=== PATIENT | female | born 1975 | race Caucasian/White ===

== ENCOUNTER 2022-01-01 08:51 | Day surgery (SDC) | payer BC ==
[2021-12-23 18:32] VITALS: BMI 29.2
[~2022-01-01 08:51] MED LIST: CEFAZOLIN 2 GM in DEXTROSE 5%-WATER - 50 ML IVPB ONE; TRANEXAMIC ACID 1000 MG/10 ML VIAL IVPUSH ONE
[2022-01-01] MEDS ORDERED: BUPIVACAINE HCL/PF 0.5% (5 MG/ML) 30 ML VIAL IJ ONE (10:37)
[2022-01-01] MEDS ORDERED: BUPIVACAINE LIPOSOME/PF (EXPAREL) 266 MG/20 ML VIAL ONE (10:37)
[2022-01-01] MEDS ORDERED: SODIUM CHLORIDE 0.9% P/F 10 ML VIAL IJ ONE (10:38)
[2022-01-01] MEDS ORDERED: BUPIVACAINE HCL/PF 0.5% (5MG/ML) 10 ML VIAL ONE (10:38)
[2022-01-01] MEDS ORDERED: MIDAZOLAM HCL 2 MG/2 ML SINGLE DOSE VIAL ONE ×3 (10:38→11:21)
[2022-01-01] MEDS ORDERED: DEXAMETHASONE SOD PHOSPHATE 4 MG/1 ML VIAL ONE (11:30)
[2022-01-01] MEDS ORDERED: ONDANSETRON 4 MG/2 ML VIAL ONE (11:30)
[2022-01-01] MEDS ORDERED: ceFAZolin SODIUM 1 GM VIAL ONE ×2 (11:30→19:27)
[2022-01-01] MEDS ORDERED: TRANEXAMIC ACID 1000 MG/10 ML VIAL ONE (11:30)
[2022-01-01] MEDS ORDERED: ONDANSETRON 4 MG/2 ML VIAL IVPUSH PRN ×2 (13:43→13:47)
[2022-01-01] MEDS ORDERED: MAGNESIUM HYDROX 2400MG/30ML ORAL SUSPENSION 30 ML CUP PO PRN (13:43)
[2022-01-01] MEDS ORDERED: MAG HYDROX/AL HYDROX/SIMETH 30 ML UNIT-DOSE CUP PO PRN (13:43)
[2022-01-01] MEDS ORDERED: LACTATED RINGERS SOLUTION 1,000 ML IV SCH (13:45)
[2022-01-01] MEDS ORDERED: oxyCODONE HCL 5 MG TABLET PO PRN ×2 (13:47)
[2022-01-01] MEDS ORDERED: ACETAMINOPHEN 500 MG TABLET (FP) ONE (14:13)
[2022-01-01] MEDS ORDERED: DEXTROSE 5%-WATER - 50 ML IVPB ONE (19:29)
[2022-01-01] MEDS: CEFAZOLIN 2 GM in DEXTROSE 5%-WATER - 50 ML IVPB SCH (19:32)
[2022-01-01] MEDS: SENNOSIDES/DOCUSATE COMBO (SENNA PLUS) TABLET (UD) PO SCH (21:54)
[2022-01-01] MEDS: oxyCODONE HCL 10 MG SUSTAINED ACTING TABLET PO SCH (21:54)
[2022-01-01] MEDS: ACETAMINOPHEN 500 MG TABLET (FP) PO SCH (21:55)
[2022-01-01] MEDS: ASPIRIN 81 MG CHEWABLE TABLETS PO SCH (21:55)
[2022-01-01] MEDS: CELECOXIB 200 MG CAPSULE PO SCH (21:55)
[2022-01-02] MEDS: CEFAZOLIN 2 GM in DEXTROSE 5%-WATER - 50 ML IVPB SCH (04:09)
[2022-01-02] MEDS: ACETAMINOPHEN 500 MG TABLET (FP) PO SCH ×4 (07:09→17:08)
[2022-01-02] MEDS ORDERED: SODIUM CHLORIDE 500 ML IV STA (07:57)
[2022-01-02 08:25] LABS: CALCIUM 8.7 mg/dl (8.5-10); CREATININE 0.8 mg/dl (0.55-1.3); HEMATOCRIT 33.7 % (32.4-45.2); HEMOGLOBIN 11.6 G/dL (10.7-15.3); MCHC 34.4 g/dl (32.0-36.0); MEAN CELL VOLUME 84.5 fl (80-96); PLATELET COUNT 189.7 10^3/uL (134-434); RBC 3.99 10^6/uL (3.60-5.2); RDW 14.6 % (11.6-15.6); WHITE BLOOD COUNT 10.2 10^3/uL (4.0-10.8)
[2022-01-02] MEDS: oxyCODONE HCL 10 MG SUSTAINED ACTING TABLET PO SCH ×2 (09:41→21:40)
[2022-01-02] MEDS: PANTOPRAZOLE 40 MG TABLET PO SCH (09:42)
[2022-01-02] MEDS: CELECOXIB 200 MG CAPSULE PO SCH ×2 (09:42→21:39)
[2022-01-02] MEDS: ASPIRIN 81 MG CHEWABLE TABLETS PO SCH ×2 (09:42→21:39)
[2022-01-02] MEDS: SENNOSIDES/DOCUSATE COMBO (SENNA PLUS) TABLET (UD) PO SCH ×2 (09:42→21:40)
[2022-01-02] MEDS ORDERED: ROSUVASTATIN CA 10 MG TABLET PO SCH (22:00)
[2022-01-03] MEDS: ACETAMINOPHEN 500 MG TABLET (FP) PO SCH ×2 (02:07→09:57)
[2022-01-03 07:04] VITALS: PULSE 75; TEMP 98.1
[2022-01-03] MEDS: ASPIRIN 81 MG CHEWABLE TABLETS PO SCH (09:56)
[2022-01-03] MEDS: CELECOXIB 200 MG CAPSULE PO SCH (09:56)
[2022-01-03] MEDS: PANTOPRAZOLE 40 MG TABLET PO SCH (09:56)
[2022-01-03] MEDS: oxyCODONE HCL 10 MG SUSTAINED ACTING TABLET PO SCH (09:58)
[2022-01-03] MEDS: SENNOSIDES/DOCUSATE COMBO (SENNA PLUS) TABLET (UD) PO SCH (09:59)
[2022-01-03 14:19] VITALS: BP 108/59
== END 2022-01-03 12:49 | disposition home or self-care (01) ==
LOC: FASUSAT 08:51 → FM/S 15:48 → FASUSAT 01-03 12:49
PROVIDERS: ATTEND Orthopaedic Surgery
PROC: 0SRD0J9 Replacement of Left Knee Joint with Synthetic Substitute, Cemented, Open Approach (ICD-10-PCS; principal; 2022-01-01 11:47)
DX: M17.12 Unilateral primary osteoarthritis, left knee (principal)
CPT/HCPCS: 27447; C1776; 36415; 73560-TC-LT-FY; 80048; 85027; 88304-TC; 88311-TC; 94760; 97010-GP; 97116-GP; 97162-GP